=== PATIENT | female | born 1985 | race Caucasian/White ===

== ENCOUNTER 2016-10-01 20:45 | Emergency (ER) | payer OTHER ==
[2016-10-01 21:04] VITALS: BP 119/85; BMI 34.3
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
== END 2016-10-01 23:00 | disposition home or self-care (01) ==
LOC: ER 20:45
DX: S80.02XA Contusion of left knee, initial encounter (principal); V89.2XXA Person injured in unspecified motor-vehicle accident, traffic, initial encounter
CPT/HCPCS: 71020; 73560; 99282; 99283